=== PATIENT | female | born 1995 | race Caucasian/White ===

== ENCOUNTER 2021-06-28 12:37 | Emergency (ER) | payer SELFPAY ==
[2021-06-28 12:43] VITALS: BP 115/71; PULSE 105; RESP 20; TEMP 36.9; O2SAT 99
[2021-06-28] MEDS: TETANUS,DIPHTHERIA,AC PERTUSSIS ADULT (0.5 ML) BOOSTRIX IM (13:07)
--- NOTE | 2021-06-28 13:16 | ED.GENADULT ---
HPI - General Adult General Chief complaint: Animal Bite Stated complaint: left hand dog bite Time Seen by Provider: 06/28/21 13:01 Source: patient and RN notes reviewed Mode of arrival: ambulatory Limitations: no limitations History of Present Illness HPI narrative: Patient presents today complaining of dog bite to her left hand that was sustained just prior to arrival. She has multiple puncture wounds. She is not up-to-date on her tetanus vaccine. She currently rates her pain 8/10 and has taken no medication for symptoms prior to arrival. She did wash with soap and water. MD complaint: Dog bite Related Data Home Medications Medication Instructions Recorded Confirmed Seroquel 06/28/21 etonogestrel [Nexplanon] 1 implant SUBDERMAL ONCE 06/28/21 06/28/21 gabapentin 06/28/21 hydroxyzine HCl 06/28/21 Allergies Allergy/AdvReac Type Severity Reaction Status Date / Time codeine Allergy Unknown Hives / Verified 06/28/21 13:18 Red Face Review of Systems Review of Systems: CONSTITUTIONAL: Denies body aches, fever, chills, or sweats. EYES: Denies visual changes, redness, or discharge. ENT: Denies rhinorrhea, congestion, sore throat, or otalgia. CARDIOVASCULAR: Denies chest pain, palpitations, or edema. RESPIRATORY: Denies cough or dyspnea. GASTROINTESTINAL: Denies abdominal pain, nausea, vomiting, or diarrhea. GENITOURINARY: Denies dysuria or hematuria. SKIN: Denies rash, itching. + Dog bite. MUSCULOSKELETAL: Denies back pain, joint pain, or myalgia. NEUROLOGIC: Denies headache, numbness, tingling, or weakness. PSYCH: Denies depression or anxiety. PMFSH Comments At time of signature, I have reviewed and agree with nursing past medical, surgical, social and family history unless otherwise noted. Please see nursing chart for further information. There is no relevant family history pertinent to the presenting complaint Exam Narrative: GENERAL: Well-appearing, well-nourished, and in no acute distress. HEAD: Normocephalic, atraumatic. EYES: EOMI. No redness or drainage. Conjunctivae normal. ENT: Mucous membranes pink and moist. NECK: Normal AROM. CHEST: No respiratory distress. EXTREMITIES: Left hand: 2 larger puncture wounds to the thenar eminence with surrounding ecchymosis and mild localized edema. 3 tiny puncture wounds to the dorsum of the hand overlying the first metacarpal. Distal sensation intact. Capillary refill normal. Radial pulse normal. Full range of motion of all fingers. SKIN: Warm, dry, no rash. Capillary refill normal. Normal skin turgor. NEURO: No focal deficits. Alert and oriented x3. Gait steady. PSYCH: Normal affect. No signs of depression or anxiety. Course Vital Signs Vital signs: Vital Signs Temperature 98.5 F 06/28/21 12:43 Pulse Rate 105 H 06/28/21 12:43 Respiratory Rate 06/28/21 12:43 Blood Pressure 115/71 06/28/21 12:43 Pulse Oximetry 99 06/28/21 12:43 Temperature 98.5 F 06/28/21 12:43 Pulse Rate 105 H 06/28/21 12:43 Respiratory Rate 06/28/21 12:43 Blood Pressure 115/71 06/28/21 12:43 Pulse Oximetry 99 06/28/21 12:43 Reviewed Medical Decision Making Differential Diagnosis Differential Diagnosis: Dog bite, puncture wound, skin avulsion, fracture Vital Signs Vital Signs: Vital Signs Temperature 98.5 F 06/28/21 12:43 Pulse Rate 105 H 06/28/21 12:43 Respiratory Rate 06/28/21 12:43 Blood Pressure 115/71 06/28/21 12:43 Pulse Oximetry 99 06/28/21 12:43 Temperature 98.5 F 06/28/21 12:43 Pulse Rate 105 H 06/28/21 12:43 Respiratory Rate 06/28/21 12:43 Blood Pressure 115/71 06/28/21 12:43 Pulse Oximetry 99 06/28/21 12:43 Critical Care Time Critical Care Time Critical Care Time: No Discharge Plan Discharge Clinical Impression: Dog bite Qualifiers: Encounter type: initial encounter Qualified Code(s): W54.0XXA - Bitten by dog, initial encounter Patient Disposition: H
== END 2021-06-28 13:27 | disposition home or self-care (01) ==
PROVIDERS: Emergency Provider Nurse Practitioner
DX: S61.452A Open bite of left hand, initial encounter (principal); Z23 Encounter for immunization; W54.0XXA Bitten by dog, initial encounter
CPT/HCPCS: 90471; 90715; 99212; G0463